=== PATIENT | female | born 1980 | race African-American/Black ===

== ENCOUNTER → 2019-09-05 17:19 | Emergency (ER) | payer MEDICAID, OTHER ==
[~2019-09-05] VITALS: Ht 172.7 cm; Wt 81.6 kg
[~2019-09-05 17:19] MED LIST: ARIP5TAB15 PO; CITA10TA59 PO; DICL1.3D21 TOP; HYDR-531 PO; HYDR25CA PO; HYDR50CA PO; LAMO100T44 PO; LIDO4PAD8 EX; LORA2TAB89 PO; ONDA-144 PO; TEMA30CA PO; TRIA0.5C10 TOP
[2019-09-05 17:23] VITALS: BP 132/86
== END | disposition left against medical advice (07) ==
LOC: EDUNIT# 17:15 → EDBD 17:19 → ER 17:19
DX: R11.2 Nausea with vomiting, unspecified (principal); Z53.21 Procedure and treatment not carried out due to patient leaving prior to being seen by health care provider

== ENCOUNTER 2019-09-06 13:52 | Inpatient (IN) | payer MEDICAID ==
[~2019-09-06] VITALS: Ht 165.1 cm; Wt 73.1 kg
[~2019-09-06 13:52] MED LIST changes: -CITA10TA59 PO; -DICL1.3D21 TOP; -HYDR-531 PO; -HYDR25CA PO; -HYDR50CA PO; -LAMO100T44 PO; -LIDO4PAD8 EX; -ONDA-144 PO; -TRIA0.5C10 TOP
[2019-09-06 14:58] LABS: Basophils # (auto) 0 10 ^3/uL (0-0.2); Basophils % (auto) 0.2 % (0.0-2.0); Eosinophils # (auto) 0 10 ^3/uL (0-0.8); Eosinophils % (auto) 0.4 % (0.0-7.0); Hematocrit 43.3 % (36.0-46.0); Hemoglobin 14.6 g/dL (12.2-16.2); Lymphocytes # (auto) 1.8 10 ^3/uL (0.4-5.4); Lymphocytes % (auto) 25.1 % (10.0-50.0); Mean Corpuscular Hemoglobin 33.2 pg (28.0-32.0); Mean Corpuscular Hgb Conc. 33.7 g/dL (32.0-36.0); Mean Corpuscular Volume 98.3 fL (80.0-100.0); Monocytes # (auto) 0.3 10 ^3/uL (0-1.3); Monocytes % (auto) 4.8 % (0.0-12.0); Neutrophils % (auto) 69.5 % (37.0-80.0); Nucleated Red Blood Cells % 0.1 %; Platelet Count (auto) 345 10^3/uL (140-450); Red Cell Distribution Width 14.8 % (11.8-14.3); White Blood Cell 7.2 10^3/uL (4.4-10.8)
[2019-09-06 15:14] LABS: Albumin 4.3 g/dL (3.4-5.0); Anion Gap 10 (5-15); Blood Urea Nitrogen 15 mg/dL (7-18); Calcium 9.1 mg/dL (8.5-10.1); Carbon Dioxide 22 mmol/L (21-32); Chloride 107 mmol/L (98-107); Glucose 122 mg/dL (74-106); Potassium 3.2 mmol/L (3.5-5.1); Sodium 139 mmol/L (136-145)
[2019-09-06 15:20] LABS: Alanine Aminotransferase 22 U/L (13-56); Alkaline Phosphatase 85 U/L (45-117); Aspartate Aminotransferase 18 U/L (15-37); BUN/Creatinine Ratio 16.3; Bilirubin, Total 0.4 mg/dL (0.2-1.0); Blood Alcohol < 3.0 mg/dL (0-5); GFR African American 88 mL/min; GFR Non-African American 73 mL/min
[2019-09-06] MEDS ORDERED: SODIUM CHLORIDE 0.9% 1,000 ML IVB ONE (17:27)
[2019-09-06] MEDS ORDERED: MORPHINE SULF INJ 2 MG/ML SYRINGE 1ML IV ONE (17:30)
[2019-09-06] MEDS ORDERED: ONDANSETRON HCL 4 MG/2 ML VIAL IV ONE (17:30)
[2019-09-06 17:45] LABS: Magnesium 2.2 mg/dL (1.6-2.6)
[2019-09-06 19:33] LABS: Urine Bacteria NONE SEEN /hpf (None Seen); Urine Blood Negative /uL (Negative); Urine Mucus MANY (None Seen); Urine Specific Gravity 1.045 (1.001-1.035); Urine WBC 11 /hpf (0 - 5)
[2019-09-06 19:53] LABS: Amphetamine Screen, Urine NEGATIVE (NEGATIVE); Barbiturate Scree,Urine NEGATIVE (NEGATIVE); Benzodiazephine Screen, Urine NEGATIVE (NEGATIVE); Cannabinoid Screen, Urine POSITIVE (NEGATIVE); Cocaine Screen, Urine NEGATIVE (NEGATIVE); Opiate Scree,Urine POSITIVE (NEGATIVE); Phencyclidine Screen, Urine NEGATIVE (NEGATIVE)
[2019-09-06] MEDS ORDERED: POTASSIUM CHL 20 Meq TABLET PO ONE (20:00)
[2019-09-06] MEDS ORDERED: THIAMINE HCL 100 MG TAB PO ONE (20:00)
[2019-09-06] MEDS ORDERED: cefTRIAXone 1GM/50ML D5W 50 ML IV ONE (20:00)
[2019-09-06] MEDS ORDERED: ONDANSETRON HCL 4 MG/2 ML VIAL IV PRN (22:00)
[2019-09-06] MEDS ORDERED: DOCUSATE SOD 100 MG CAP PO PRN (22:00)
[2019-09-06] MEDS ORDERED: HYDROcodone-ACET 5/325MG TAB PO PRN (22:00)
[2019-09-06] MEDS ORDERED: cloNIDine HCL 0.1 MG TAB PO PRN (22:00)
[2019-09-06] MEDS ORDERED: ACETAMINOPHEN 325 MG TAB PO PRN (22:00)
[2019-09-06] MEDS: SODIUM CHLORIDE 0.9% 1,000 ML IV SCH (22:07)
[2019-09-06 22:38] VITALS: BP 130/81
[2019-09-06] MEDS: LORazepam 0.5 MG TAB PO SCH (22:50)
[2019-09-06 23:17] LABS: Basophils # (auto) 0 10 ^3/uL (0-0.2); Basophils % (auto) 0.3 % (0.0-2.0); Eosinophils # (auto) 0 10 ^3/uL (0-0.8); Eosinophils % (auto) 0.1 % (0.0-7.0); Hematocrit 37.7 % (36.0-46.0); Hemoglobin 12.7 g/dL (12.2-16.2); Lymphocytes % (auto) 42.9 % (10.0-50.0); Mean Corpuscular Hemoglobin 32.6 pg (28.0-32.0); Mean Corpuscular Hgb Conc. 33.8 g/dL (32.0-36.0); Mean Corpuscular Volume 96.3 fL (80.0-100.0); Neutrophils # (auto) 4.3 10 ^3/uL (1.6-8.6); Neutrophils % (auto) 45.7 % (37.0-80.0); Nucleated Red Blood Cells % 0.1 %; Platelet Count (auto) 329 10^3/uL (140-450); Red Blood Cells 3.91 10^6/uL (4.0-5.20); White Blood Cell 9.4 10^3/uL (4.4-10.8)
[2019-09-06] MEDS: PROMETHAZINE HCL 25 MG/ML 1ML IV PRN (23:26)
[2019-09-06 23:39] LABS: Calcium 8.6 mg/dL (8.5-10.1); Potassium 3.2 mmol/L (3.5-5.1)
[2019-09-07] MEDS: MORPHINE SULF INJ 2 MG/ML SYRINGE 1ML IV PRN ×4 (00:32→23:26)
[2019-09-07] MEDS: TEMAZEPAM 15 MG CAP PO PRN ×2 (01:39→21:33)
[2019-09-07] MEDS ORDERED: HYDR-531 PO (04:39)
[2019-09-07] MEDS ORDERED: DICL1.3D21 TOP (04:39)
[2019-09-07] MEDS ORDERED: ONDA-144 PO (04:39)
[2019-09-07] MEDS ORDERED: TRIA0.5C10 TOP (04:39)
[2019-09-07] MEDS ORDERED: CITA10TA59 PO (04:39)
[2019-09-07] MEDS ORDERED: HYDR25CA PO (04:39)
[2019-09-07] MEDS ORDERED: LAMO100T44 PO (04:39)
[2019-09-07] MEDS ORDERED: HYDR50CA PO (04:39)
[2019-09-07] MEDS ORDERED: LIDO4PAD8 EX (04:39)
[2019-09-07 05:00] VITALS: BP 130/78
[2019-09-07 09:00] VITALS: BP 134/82
[2019-09-07] MEDS ORDERED: POTASSIUM CHL 20MEQ/100ML 100 ML IV ONE (10:30)
[2019-09-07] MEDS ORDERED: PANTOPRAZOLE 40 MG TAB PO ONE (10:45)
[2019-09-07] MEDS: LORazepam 0.5 MG TAB PO SCH ×2 (11:32→20:09)
[2019-09-07 13:00] VITALS: BP 179/105
[2019-09-07] MEDS: PROMETHAZINE HCL 25 MG/ML 1ML IV PRN ×2 (16:16→20:21)
[2019-09-07] MEDS: SUCRALFATE 1 GM/10 ML ORAL SUSP PO SCH ×2 (16:59→20:10)
[2019-09-07 17:00] VITALS: BP 155/105
[2019-09-07 18:21] LABS: INR 1.08 (0.9-1.15)
[2019-09-07] MEDS: PANTOPRAZOLE 40 MG TAB PO SCH (20:09)
[2019-09-07] MEDS ORDERED: cefTRIAXone 1GM/50ML D5W 50 ML IV SCH (21:00)
[2019-09-07 22:00] VITALS: BP 136/91
[2019-09-08 05:00] VITALS: BP 128/84
[2019-09-08] MEDS: SUCRALFATE 1 GM/10 ML ORAL SUSP PO SCH ×2 (05:07→11:36)
[2019-09-08] MEDS: PROMETHAZINE HCL 25 MG/ML 1ML IV PRN (05:07)
[2019-09-08] MEDS: SODIUM CHLORIDE 0.9% 1,000 ML IV SCH (05:07)
[2019-09-08] MEDS: MORPHINE SULF INJ 2 MG/ML SYRINGE 1ML IV PRN ×2 (05:07→11:44)
[2019-09-08 06:26] LABS: INR 1.14 (0.9-1.15); Partial Thromboplastin Time 28.5 sec (23.64-32.05)
[2019-09-08 09:00] VITALS: BP 150/100
[2019-09-08] MEDS ORDERED: MIDAZOLAM HCL 1MG/1ML-2 ML VIAL ONE ×2 (09:40→09:53)
[2019-09-08] MEDS ORDERED: fentaNYL CITRATE 100 MCG/2 ML VL ONE (09:40)
[2019-09-08] MEDS ORDERED: PROPOFOL 10 MG/ML 20 ML IV ONE (09:51)
[2019-09-08] MEDS ORDERED: MEPERIDINE HCL (25 MG/ML) 1ML VIAL ONE (09:51)
[2019-09-08] MEDS ORDERED: DexAMETHasone SOD PHOS 10MG/1ML VIAL INJ ONE (09:51)
[2019-09-08] MEDS ORDERED: PANTOPRAZOLE 40 MG TAB PO SCH (10:00)
[2019-09-08] MEDS: PANTOPRAZOLE 40 MG TAB PO SCH (11:36)
[2019-09-08] MEDS: LORazepam 0.5 MG TAB PO SCH (11:37)
[2019-09-08 13:00] VITALS: BP 157/108
[2019-09-08 14:34] VITALS: BP 157/108
== END 2019-09-08 15:25 | disposition home or self-care (01) | DRG 241 ==
LOC: ER 13:52 → OVERFLOW 13:53 → CENTRAL 23:03
PROVIDERS: ADMIT Hospitalist; ATTEND Internal Medicine
PROC: 0DB68ZX Excision of Stomach, Via Natural or Artificial Opening Endoscopic, Diagnostic (ICD-10-PCS; principal; 2019-09-08 09:45)
DX: K29.71 Gastritis, unspecified, with bleeding (principal); F20.9 Schizophrenia, unspecified; N39.0 Urinary tract infection, site not specified; E87.6 Hypokalemia; R10.84 Generalized abdominal pain; F41.9 Anxiety disorder, unspecified; F41.0 Panic disorder [episodic paroxysmal anxiety]; F43.10 Post-traumatic stress disorder, unspecified; F32.9 Major depressive disorder, single episode, unspecified; F17.210 Nicotine dependence, cigarettes, uncomplicated; I10 Essential (primary) hypertension; F12.90 Cannabis use, unspecified, uncomplicated; G89.29 Other chronic pain; Z86.73 Personal history of transient ischemic attack (TIA), and cerebral infarction without residual deficits
CPT/HCPCS: 36415; 43239; 71045; 74176; 76705; 80048; 80053; 80307; 80320; 81001; 81025; 82150; 83690; 83735; 84702; 85025; 85610; 85730; G0378; J0696; J1100; J2250; J2405; J2704; J3480

== ENCOUNTER 2020-12-21 15:11 | Emergency (ER) | payer MEDICAID ==
[~2020-12-21] VITALS: Ht 165.1 cm; Wt 61.2 kg
[~2020-12-21 15:11] MED LIST changes: +CITA10TA8 PO; +DICL1.3P TOP; +HYDR-531 PO; +HYDR25CA PO; +HYDR50CA PO; +LAMO100T44 PO; +LIDO4PAD8 EX; +ONDA-144 PO; +TRIA0.5C TOP
[2020-12-21 15:12] VITALS: BP 143/78
[2020-12-21 15:44] LABS: Basophils # (auto) 0 10 ^3/uL (0-0.2); Eosinophils # (auto) 0 10 ^3/uL (0-0.8); Hemoglobin 12.6 g/dL (12.2-16.2); Lymphocytes # (auto) 1.2 10 ^3/uL (0.4-5.4); Mean Corpuscular Hemoglobin 34.9 pg (28.0-32.0)
[2020-12-21 15:45] LABS: Basophils % (auto) 0.3 % (0.0-2.0); Eosinophils % (auto) 0.1 % (0.0-7.0); Hematocrit 36.5 % (36.0-46.0); Lymphocytes % (auto) 20.4 % (10.0-50.0); Mean Corpuscular Hgb Conc. 34.4 g/dL (32.0-36.0); Mean Corpuscular Volume 101.6 fL (80.0-100.0); Monocytes # (auto) 0.3 10 ^3/uL (0-1.3); Monocytes % (auto) 4.4 % (0.0-12.0); Neutrophils # (auto) 4.4 10 ^3/uL (1.6-8.6); Neutrophils % (auto) 74.8 % (37.0-80.0); Red Cell Distribution Width 13.9 % (11.8-14.3); White Blood Cell 5.8 10^3/uL (4.4-10.8)
[2020-12-21 16:03] LABS: Albumin 3.5 g/dL (3.4-5.0); Calcium 8.9 mg/dL (8.5-10.1); Potassium 3.5 mmol/L (3.5-5.1)
[2020-12-21 16:07] LABS: BUN/Creatinine Ratio 21.7; Bilirubin, Total 0.2 mg/dL (0.2-1.0); Total Protein 8.6 g/dL (6.4-8.2)
[2020-12-21 17:49] LABS: Urine Bacteria FEW /hpf (None Seen); Urine Blood 3+ /uL (Negative); Urine Mucus FEW (None Seen); Urine Specific Gravity 1.044 (1.001-1.035); Urine WBC 45 /hpf (0 - 5)
[2020-12-21] MEDS ORDERED: SODIUM CHLORIDE 0.9% 1,000 ML IV ONE ×2 (18:00)
[2020-12-21] MEDS ORDERED: ONDANSETRON HCL 4 MG/2 ML VIAL IV ONE (18:00)
[2020-12-21] MEDS ORDERED: MORPHINE SULFATE 4 MG/ML SYR/VIAL IV ONE (18:00)
[2020-12-21] MEDS ORDERED: LORazepam 2MG/ML-1ML VIAL IV ONE (18:00)
[2020-12-21 19:22] LABS: Magnesium 2.2 mg/dL (1.6-2.6)
== END 2020-12-21 22:37 | disposition left against medical advice (07) ==
LOC: ER 15:11
DX: N39.0 Urinary tract infection, site not specified (principal); K21.9 Gastro-esophageal reflux disease without esophagitis; F17.210 Nicotine dependence, cigarettes, uncomplicated; Z86.73 Personal history of transient ischemic attack (TIA), and cerebral infarction without residual deficits; Z79.899 Other long term (current) drug therapy
CPT/HCPCS: 36415; 71046; 74177; 80053; 81001; 83605; 83690; 83735; 85025; 87086; 87088; 87186; 96361; 96374; 96375; 99285; J2270; J2405; J7030; 93005

== ENCOUNTER 2020-12-22 08:53 | Emergency (ER) | payer MEDICAID ==
[~2020-12-22] VITALS: Ht 165.1 cm; Wt 64.9 kg
[2020-12-22 09:00] VITALS: BP 171/86
== END 2020-12-22 09:53 | disposition home or self-care (01) ==
LOC: ER 08:53
DX: R10.84 Generalized abdominal pain (principal); R11.2 Nausea with vomiting, unspecified; K21.9 Gastro-esophageal reflux disease without esophagitis; F17.210 Nicotine dependence, cigarettes, uncomplicated; Z86.73 Personal history of transient ischemic attack (TIA), and cerebral infarction without residual deficits; Z79.899 Other long term (current) drug therapy

== ENCOUNTER 2020-12-22 12:40 | Emergency (ER) | payer MEDICAID ==
[~2020-12-22] VITALS: Ht 165.1 cm; Wt 64.9 kg
[2020-12-22 14:30] VITALS: BP 159/77
== END 2020-12-22 14:36 | disposition home or self-care (01) ==
LOC: ER 12:40
DX: N39.0 Urinary tract infection, site not specified (principal); K21.9 Gastro-esophageal reflux disease without esophagitis; F17.210 Nicotine dependence, cigarettes, uncomplicated; Z86.73 Personal history of transient ischemic attack (TIA), and cerebral infarction without residual deficits; Z79.899 Other long term (current) drug therapy
CPT/HCPCS: 87086

== ENCOUNTER 2020-12-22 19:44 | Emergency (ER) | payer MEDICAID ==
[~2020-12-22] VITALS: Ht 170.2 cm; Wt 59.0 kg
[2020-12-22 20:41] LABS: Basophils # (auto) 0 10 ^3/uL (0-0.2); Basophils % (auto) 0.3 % (0.0-2.0); Eosinophils # (auto) 0 10 ^3/uL (0-0.8); Hematocrit 39.1 % (36.0-46.0); Hemoglobin 13.4 g/dL (12.2-16.2); Lymphocytes # (auto) 1.3 10 ^3/uL (0.4-5.4); Mean Corpuscular Hemoglobin 34.8 pg (28.0-32.0); Mean Corpuscular Hgb Conc. 34.2 g/dL (32.0-36.0); Mean Corpuscular Volume 101.8 fL (80.0-100.0); Monocytes # (auto) 0.3 10 ^3/uL (0-1.3); Monocytes % (auto) 4.6 % (0.0-12.0); Neutrophils # (auto) 5.1 10 ^3/uL (1.6-8.6); Neutrophils % (auto) 76.1 % (37.0-80.0); Nucleated Red Blood Cells % 0.1 %; Red Blood Cells 3.84 10^6/uL (4.0-5.20); Red Cell Distribution Width 13.7 % (11.8-14.3); White Blood Cell 6.7 10^3/uL (4.4-10.8)
[2020-12-22 20:59] LABS: Albumin 3.4 g/dL (3.4-5.0); Calcium 8.8 mg/dL (8.5-10.1); Potassium 3.2 mmol/L (3.5-5.1)
[2020-12-22 21:04] LABS: BUN/Creatinine Ratio 23.3; Bilirubin, Total 0.2 mg/dL (0.2-1.0); Total Protein 8.4 g/dL (6.4-8.2)
[2020-12-22] MEDS ORDERED: LORazepam 2MG/ML-1ML VIAL IV ONE (23:45)
[2020-12-22] MEDS ORDERED: diphenhdrAMINE HCL 50 MG/1 ML VL IV ONE (23:45)
[2020-12-22] MEDS ORDERED: SODIUM CHLORIDE 0.9% 1,000 ML IV ONE (23:45)
[2020-12-22] MEDS ORDERED: FAMOTIDINE (10MG/ML) 2ML VL IV ONE (23:45)
[2020-12-22] MEDS ORDERED: ONDANSETRON HCL 4 MG/2 ML VIAL IV ONE (23:45)
[2020-12-22] MEDS ORDERED: DICYCLOMINE HCL (10MG/ML) 2 ML AMPULE IM ONE (23:45)
[2020-12-23] MEDS ORDERED: MORPHINE SULFATE INJECTION 2 MG/ML SYRG IV ONE (01:15)
[2020-12-23 02:31] VITALS: BP 135/85
== END 2020-12-23 02:32 | disposition home or self-care (01) ==
LOC: ER 19:44 → EDBD 19:44 → ER 12-23 02:32
DX: K59.00 Constipation, unspecified (principal); K21.9 Gastro-esophageal reflux disease without esophagitis; F17.210 Nicotine dependence, cigarettes, uncomplicated; F12.10 Cannabis abuse, uncomplicated; Z86.73 Personal history of transient ischemic attack (TIA), and cerebral infarction without residual deficits
CPT/HCPCS: 36415; 80053; 83605; 83690; 84702; 85025; 96361; 96372; 96374; 96375; 99285; J0500; J1200; J2060; J2270; J2405; J3490

== ENCOUNTER 2021-10-12 06:01 | Emergency (ER) | payer MEDICAID ==
[~2021-10-12] VITALS: Ht 165.1 cm; Wt 75.7 kg
[2021-10-12] MEDS ORDERED: MORPHINE SULFATE INJ 2 MG/ml SYRG IV ONE (06:30)
[2021-10-12] MEDS ORDERED: ONDANSETRON HCL 4 MG/2 ML VIAL IV ONE ×2 (06:30→06:45)
[2021-10-12] MEDS ORDERED: MORPHINE SULFATE 4 MG/ML SYR/VIAL ONE (06:35)
[2021-10-12] MEDS ORDERED: ONDANSETRON HCL 4 MG/2 ML VIAL ONE (06:36)
[2021-10-12] MEDS ORDERED: ALUM & MAG HYDROX-SIMETH LIQ(MAALOX) 30 ML PO ONE (06:45)
[2021-10-12] MEDS ORDERED: LIDOCAINE VISCOUS 2% 15ML UD PO ONE (06:45)
[2021-10-12] MEDS ORDERED: FAMOTIDINE (10MG/ML) 2ML VL IV ONE (06:45)
[2021-10-12 07:31] LABS: Basophils # (auto) 0 10 ^3/uL (0-0.2); Basophils % (auto) 0.3 % (0.0-2.0); Hemoglobin 13.7 g/dL (12.2-16.2); Monocytes # (auto) 0.2 10 ^3/uL (0-1.3); Monocytes % (auto) 3.2 % (0.0-12.0); Neutrophils # (auto) 5.4 10 ^3/uL (1.6-8.6); White Blood Cell 6.7 10^3/uL (4.4-10.8)
[2021-10-12 07:33] LABS: Eosinophils # (auto) 0.1 10 ^3/uL (0-0.8); Eosinophils % (auto) 0.8 % (0.0-7.0); Hematocrit 39.6 % (36.0-46.0); Lymphocytes % (auto) 15.3 % (10.0-50.0); Mean Corpuscular Hemoglobin 35.9 pg (28.0-32.0); Mean Corpuscular Hgb Conc. 34.5 g/dL (32.0-36.0); Mean Corpuscular Volume 104.1 fL (80.0-100.0); Neutrophils % (auto) 80.4 % (37.0-80.0); Red Blood Cells 3.81 10^6/uL (4.0-5.20); Red Cell Distribution Width 12.4 % (11.8-14.3)
[2021-10-12 07:44] LABS: Urine Bacteria NONE SEEN /hpf (None Seen); Urine Blood Negative /uL (Negative); Urine Specific Gravity 1.027 (1.001-1.035); Urine WBC <1 /hpf (0 - 5)
[2021-10-12 07:45] LABS: BUN/Creatinine Ratio 13.9; Potassium 3.8 mmol/L (3.5-5.1)
[2021-10-12 07:48] LABS: Bilirubin, Total 0.2 mg/dL (0.2-1.0)
[2021-10-12 07:54] LABS: INR 1.01 (0.9-1.15); Partial Thromboplastin Time 27.7 sec (23.6-33.0)
[2021-10-12] MEDS ORDERED: LORazepam 0.5 MG TAB PO ONE (10:00)
[2021-10-12 13:30] VITALS: BP 145/89
== END 2021-10-12 13:53 | disposition home or self-care (01) ==
LOC: ER 06:01 → EDBD 06:01 → EDUNIT# 06:01 → ER 13:39
DX: K29.70 Gastritis, unspecified, without bleeding (principal); K21.9 Gastro-esophageal reflux disease without esophagitis; F17.210 Nicotine dependence, cigarettes, uncomplicated; F12.10 Cannabis abuse, uncomplicated; Z32.02 Encounter for pregnancy test, result negative; Z86.73 Personal history of transient ischemic attack (TIA), and cerebral infarction without residual deficits
CPT/HCPCS: 36415; 71045; 80053; 81001; 81025; 83605; 83690; 83735; 84702; 85025; 85610; 85730; 86850; 86900; 86901; 93005; 96374; 96375; 99285; J2270; J2405; J3490

== ENCOUNTER 2021-12-28 10:12 | Emergency (ER) | payer MEDICAID ==
[~2021-12-28] VITALS: Ht 165.1 cm; Wt 72.7 kg
[2021-12-28] MEDS ORDERED: ONDANSETRON HCL 4 MG/2 ML VIAL IV ONE (10:45)
[2021-12-28] MEDS ORDERED: MORPHINE SULFATE 4 MG/ML SYR/VIAL IV ONE (10:45)
[2021-12-28] MEDS ORDERED: SODIUM CHLORIDE 0.9% 1,000 ML IV ONE ×2 (10:45)
[2021-12-28] MEDS ORDERED: DONNATAL 5ml ORAL Elix (BELLADONNA ALK-PHENOBARB) PO ONE (11:15)
[2021-12-28] MEDS ORDERED: ALUM & MAG HYDROX-SIMETH LIQ(MAALOX) 30 ML PO ONE (11:15)
[2021-12-28] MEDS ORDERED: LIDOCAINE VISCOUS 2% 15ML UD PO ONE (11:15)
[2021-12-28 11:22] LABS: Basophils # (auto) 0 10 ^3/uL (0-0.2); Basophils % (auto) 0.4 % (0.0-2.0); Eosinophils # (auto) 0 10 ^3/uL (0-0.8); Eosinophils % (auto) 0.3 % (0.0-7.0); Hematocrit 41.6 % (36.0-46.0); Hemoglobin 13.9 g/dL (12.2-16.2); Mean Corpuscular Hemoglobin 33.7 pg (28.0-32.0); Mean Corpuscular Hgb Conc. 33.5 g/dL (32.0-36.0); Mean Corpuscular Volume 100.8 fL (80.0-100.0); Monocytes # (auto) 0.3 10 ^3/uL (0-1.3); Monocytes % (auto) 3.5 % (0.0-12.0); Neutrophils # (auto) 5.9 10 ^3/uL (1.6-8.6); Neutrophils % (auto) 81.8 % (37.0-80.0); Red Blood Cells 4.13 10^6/uL (4.0-5.20); Red Cell Distribution Width 12.3 % (11.8-14.3); White Blood Cell 7.3 10^3/uL (4.4-10.8)
[2021-12-28 11:39] LABS: Potassium 3.5 mmol/L (3.5-5.1)
[2021-12-28 11:43] LABS: BUN/Creatinine Ratio 14.8; Bilirubin, Total 0.3 mg/dL (0.2-1.0); Total Protein 8.1 g/dL (6.4-8.2)
[2021-12-28] MEDS ORDERED: KETOROLAC TROMETH 30 MG/ML 1ML VIAL IV ONE (13:00)
[2021-12-28] MEDS ORDERED: PROCHLORPERAZINE EDISYLATE 5 MG/ML 2ML VIAL IV ONE (14:15)
[2021-12-28 15:48] LABS: Urine Bacteria FEW /hpf (None Seen); Urine Blood Negative /uL (Negative); Urine Hyaline Cast FEW /lpf (0 - 2); Urine Mucus FEW (None Seen); Urine Specific Gravity 1.024 (1.001-1.035); Urine WBC <1 /hpf (0 - 5)
[2021-12-28 16:05] LABS: Alcohol, Urine < 3.0 mg/dL (0-10); Amphetamine Screen, Urine NEGATIVE (NEGATIVE); Barbiturate Scree,Urine NEGATIVE (NEGATIVE); Benzodiazephine Screen, Urine NEGATIVE (NEGATIVE); Cannabinoid Screen, Urine NEGATIVE (NEGATIVE); Cocaine Screen, Urine NEGATIVE (NEGATIVE); Opiate Scree,Urine POSITIVE (NEGATIVE); Phencyclidine Screen, Urine NEGATIVE (NEGATIVE)
[2021-12-28 17:00] VITALS: BP 149/84
== END 2021-12-28 17:59 | disposition home or self-care (01) ==
LOC: ER 10:12 → EDBD 10:12 → ER 17:59
DX: R10.84 Generalized abdominal pain (principal); R74.8 Abnormal levels of other serum enzymes; K21.9 Gastro-esophageal reflux disease without esophagitis; F17.210 Nicotine dependence, cigarettes, uncomplicated; F12.10 Cannabis abuse, uncomplicated; Z86.73 Personal history of transient ischemic attack (TIA), and cerebral infarction without residual deficits
CPT/HCPCS: 36415; 74176; 80053; 80307; 81001; 85025; 96361; 96374; 96375; 99285; J0780; J1885; J2270; J2405; J7030